=== PATIENT | male | born 1980 | race Caucasian/White ===

== ENCOUNTER 2019-12-25 07:46 | Outpatient (CLI) | payer OTHER, SELFPAY ==
--- NOTE | ~2019-12-25 | MR_ITS ---
EXAMINATION: MR IAC wo/w con DATE: 12/25/2019 09:40 INDICATION: Unspecified hearing loss, left ear. TECHNIQUE: Magnetic resonance imaging (MRI) of the brain, brainstem, and internal auditory canals was performed without and with 15 mL MultiHance intravenous contrast. Sequences included sagittal and ax ial T1-weighted FSE, axial diffusion-weighted FS EPI, axial T2*-weighted GRE, axial T2-weighted FLAIR Propeller, axial T2-weighted Propeller, small vpqbz-yc-bhmi coronal FIESTA, small onprz-qb-ownk nalini nal T1-weighted FSE, and small xizwg-pu-qllx axial T1-weighted SPGR. Postcontrast sequences included axial T1-weighted FSE, small hhnld-qm-xvqv coronal T1-weighted FSE, and small ectnq-ml-rqnb axial T1- weighted SPGR. Apparent diffusion coefficient (ADC) maps were created. COMPARISON: None. FINDINGS: There is no intracranial hemorrhage, acute infarction, or abnormal intracranial mass lesion . The ventricles are normal in size. The internal auditory canals and inner and middle ears are gabriela l. The mastoid air cells are normal. The paranasal sinuses are clear. The orbits are normal. IMPRESSION: 1. Normal brain. Reviewed, dictated and finalized at location A. IMPRESSION: 1. Normal brain.
[2019-12-25 08:41] LABS: Estimated Glomerular Filt Rate > 60
== END 2019-12-25 07:47 | disposition home or self-care (01) ==
LOC: ANHIMG 07:52
PROVIDERS: Visit Provider Otolaryngology
DX: H91.92 Unspecified hearing loss, left ear (principal); H93.12 Tinnitus, left ear; R42 Dizziness and giddiness
CPT/HCPCS: 70553; A9577

== ENCOUNTER 2024-08-21 12:57 | Outpatient (CLI) | payer BC, SELFPAY ==
--- NOTE | ~2024-08-21 | US_ITS ---
Ultrasound of the left upper extremity CLINICAL HISTORY: Mass TECHNIQUE: Targeted sonographic imaging performed at the left forearm at the area of clinical concern . FINDINGS: At the area of concern, there is a 1.2 x 0.3 x 1.1 cm parallel homogeneous mass. No posteri or shadowing. This could reflect small lipoma. IMPRESSION: Probable small lipoma at the left 4 measuring 1.2 x 0.3 x 1.1 cm. Reviewed, dictated and finalized at location M.
--- NOTE | ~2024-08-21 | US_ITS ---
Ultrasound of the chest CLINICAL HISTORY: Mass lesion TECHNIQUE: Targeted sonographic imaging performed at the area of clinical concern at the right latera l chest wall region. FINDINGS: At the area of concern, there is a 2.1 x 0.8 x 1.8 cm circumscribed parallel homogeneous so lid mass, most compatible with lipoma. IMPRESSION: 2.1 x 0.8 x 1.8 cm mass as detailed above, most compatible with lipoma. Reviewed, dictated and finalized at location M.
== END 2024-08-21 12:58 | disposition home or self-care (01) ==
PROVIDERS: PCP Physician Assistant; Visit Provider Physician Assistant
DX: R22.9 Localized swelling, mass and lump, unspecified (principal)
CPT/HCPCS: 76604; 76882